=== PATIENT | female | born 1965 | race Native Hawaiian/Other Pacific Islander ===

== ENCOUNTER 2019-07-22 08:00 | Day surgery (SDC) | payer OTHER ==
[~2019-07-22] VITALS: Ht 162.6 cm; Wt 98.9 kg
== END 2019-07-22 10:55 | disposition home or self-care (01) ==
LOC: OR 08:00
PROC: 0DJD8ZZ Inspection of Lower Intestinal Tract, Via Natural or Artificial Opening Endoscopic (ICD-10-PCS; principal; 2019-07-22)
PROC: 0DB48ZZ Excision of Esophagogastric Junction, Via Natural or Artificial Opening Endoscopic (ICD-10-PCS; 2019-07-22)
PROC: 0DB68ZZ Excision of Stomach, Via Natural or Artificial Opening Endoscopic (ICD-10-PCS; 2019-07-22)
DX: K29.50 Unspecified chronic gastritis without bleeding (principal); K44.9 Diaphragmatic hernia without obstruction or gangrene; R10.84 Generalized abdominal pain; K21.9 Gastro-esophageal reflux disease without esophagitis; Z12.11 Encounter for screening for malignant neoplasm of colon; Z86.010 Personal history of colon polyps; J44.9 Chronic obstructive pulmonary disease, unspecified
CPT/HCPCS: 43239; G0121; 94640; 94664; 94760; J2001; J2250; J2405; J2704

== ENCOUNTER 2022-05-21 07:29 | Outpatient (CLI) | payer OTHER | END 2022-05-21 20:19 | disposition home or self-care (01) | LOC: NM 07:29 | PROVIDERS: ATTEND Internal Medicine | DX: E05.80 Other thyrotoxicosis without thyrotoxic crisis or storm (principal) | CPT/HCPCS: A9516 ==